=== PATIENT | female | born 1990 | race Caucasian/White ===

== ENCOUNTER 2019-07-05 15:06 | Emergency (ER) | payer BC ==
--- NOTE | 2019-07-05 15:38 | UC ---
Complaint Female HPI - HPI Summary HPI Summary: Patient presenting with "irritation and swelling on left labia" x1 week. Patient states the area has gradually become more tender. Notes minimal itching , mostly pain. Denies noticeable lesions but not able to get a good look. Denies urinary symptoms. Denies abnormal vaginal discharge. Denies drainage or bleeding from the affected area. LMP ~1 week ago. Denies concern for STIs. States she has had yeast infections in the past but this is different from that. Also adds that she had "positive herpes test at 14 or 15 years old" but was not sure if it was a false positive or not because she "never had obvious lesions." - History Of Current Complaint Stated Complaint: PERSONAL Hx Obtained From: Patient - Allergies/Home Medications Allergies/Adverse Reactions: Allergies Allergy/AdvReac Type Severity Reaction Status Date / Time No Known Allergies Allergy Verified 07/05/19 15:43 Home Medications: Home Medications Cephalexin CAP* [Keflex CAP*] 500 mg PO TID #15 cap 07/05/19 [Rx] Fluconazole 150 MG TAB* [Diflucan 150 MG TAB*] 150 mg PO ED ONCE PRN #1 tablet 07/05/19 [Rx] Sertraline HCl [Zoloft] 25 mg PO DAILY 07/05/19 [History Confirmed 07/05/19] Trazodone HCl 25 mg PO DAILY 07/05/19 [History Confirmed 07/05/19] PMH/Surg Hx/FS Hx/Imm Hx - Family History Known Family History: Positive: Non-Contributory Review of Systems All Other Systems Reviewed And Are Negative: Yes Constitutional: Positive: Negative. Negative: Fever, Chills Skin: Positive: Other - "left labia irriation" Respiratory: Positive: Negative Cardiovascular: Positive: Negative Gastrointestinal: Positive: Negative Musculoskeletal: Positive: Negative Neurological/Mental Status: Positive: Negative Physical Exam - Summary Physical Exam Summary: Vital Signs Reviewed: Yes A+Ox3, no distress, well-appearing Eyes: Conjunctiva Clear ENT: Hearing grossly normal Neck: Positive: Supple Respiratory: Positive: No respiratory distress, No accessory muscle use Cardiovascular: skin reflects adequate perfusion Musculoskeletal Exam: RAUSCH x 4 without difficulty Neurological: Positive: Alert Psychological: Positive: age appropriate behavior Skin: Positive: ~5mm round tender pustule noted on left labia minora, minimal fluctuance, non draining, minimal surrounding erythema, no red streaking, no significant edema Complaint Female Dx - Course Course Of Treatment: Discussed cyst on labia with patient who verbally consented to attempt drainage. A timeout was performed with JAYLIN Jeter. I sterilized the area with alcohol swab and inserted a 30g needle into the labia. No fluid was able to be expressed at this time. I instructed the patient to perform sitz baths and also provided with prescription for keflex. Patient requested diflucan in case the antibiotic causes yeast infection so I sent prescription for that as well. Instructed to return or follow up with pcp or derm referral for persistent or worsening symptoms. Patient voiced understanding and agreed with treatment plan. - Differential Dx/Diagnosis Differential Diagnosis/HQI/PQRI: Bartholin Cyst Provider Diagnosis: Labial cyst Discharge ED - Sign-Out/Discharge Documenting (check all that apply): Patient Departure All imaging exams completed and their final reports reviewed: No Studies - Discharge Plan Condition: Stable Disposition: HOME Prescriptions: Cephalexin CAP* [Keflex CAP*] 500 mg PO TID #15 cap Fluconazole 150 MG TAB* [Diflucan 150 MG TAB*] 150 mg PO ED ONCE PRN #1 tablet PRN Reason: Itching Patient Education Materials: Sitz Bath (DC), Cyst (ED) Referrals: Magdy Ramsey MD [Medical Doctor] - If Needed Additional Instructions: Perform sitz baths or apply warm compresses 2-3 times daily to help alleviate symptoms. Keep the area clean and dry otherwise. Wear cotton underwear to wick away moisture. Take Keflex as prescribed. Follow up with your primary care provider or the dermatology referral listed below if symptoms persist or worsen. - Billing Disposition and Condition Condition: STABLE Disposition: Home
[2019-07-05 15:43] VITALS: BP 144/104
== END 2019-07-05 16:43 | disposition home or self-care (01) ==
LOC: UCCORT 15:06
DX: N90.7 Vulvar cyst (principal)
CPT/HCPCS: 10060; 99202; G0463